=== PATIENT | female | born 1940 | race Caucasian/White ===

== ENCOUNTER 2018-11-11 16:20 | Observation (INO) ==
--- NOTE | 2018-11-11 16:31 | Emergency Department Note ---
Disposition Clinical Impression: Chest pain Disposition: Admitted As Inpatient Condition: Good Time of Disposition: 19:17 Chest Pain HPI - General Chief Complaint: ED Chest Pain Stated Complaint: chest pain Time Seen by Provider: 11/11/18 16:29 Source: patient Mode of arrival: ambulatory Limitations: no limitations Vital Signs Reviewed: Yes Nursing Notes Reviewed: Yes - History of Present Illness HPI Narrative: Patient has had chest pain for over a week. She is been moving but got worse today so she came to the emergency department for evaluation. In the center of her chest reading through to her scapulas. She denies any vomiting and complains of a little shortness of breath. Patient reports that she sold her house is been packing to move to [place] she thought this might be what was causing her pain at first but when it persisted she decided to come and have it checked Onset (ago): week(s) (1 week) Pain Location: substernal, left chest Severity: mild Quality: aching Pain Radiation: back Improves with: nothing Worsens with: nothing - Related Data Home Medications Medication Instructions Recorded Confirmed Gabapentin [Neurontin] 800 mg PO TID 07/12/17 11/11/18 Insulin Glargine,Hum.rec.anlog 10 - 15 units SQ HS 07/12/17 11/11/18 [Lantus Solostar] Valsartan [Diovan] 40 mg PO DAILY 07/12/17 11/11/18 traZODone [TraZODone] 50 mg PO HS 07/12/17 11/11/18 Allopurinol [Zyloprim] 300 mg PO DAILY 07/01/18 11/11/18 Previous Rx's Medication Instructions Recorded Cetirizine HCl [Zyrtec] 10 mg PO DAILY #90 tablet 03/02/18 Fluticasone Propionate Nasal 16 gm NS DAILY PRN #1 bottle 03/02/18 [Flonase] Ondansetron ODT [Zofran ODT] 4 mg SL Q6HR PRN #12 tab.rapdis 09/29/18 Allergies Allergy/AdvReac Type Severity Reaction Status Date / Time No Known Allergies Allergy Verified 08/22/18 10:57 All systems ED: reviewed and negative except as stated. Review of Systems: As Per HPI Constitutional: Denies: fever, chills, weakness, weight change Eyes: Denies: eye pain, eye discharge, vision change ENT ED: Denies: ear pain, throat pain, dental pain, hearing loss, epistaxis, congestion, dysphagia Cardiovascular: Reports: as per HPI, chest pain Respiratory: Reports: as per HPI, dyspnea Gastrointestinal: Denies: abdominal pain, nausea, vomiting, diarrhea, constipation, hematemesis, melena, hematochezia Genitourinary: Denies: dysuria, frequency, hematuria, discharge Musculoskeletal: Denies: back pain, neck pain, arthralgia, myalgia Integumentary: Denies: rash, abrasion, lesions Neurological: Denies: headache, weakness, numbness, paresthesias, confusion, abnormal gait, vertigo Psychiatric: Denies: anxiety, depression, suicidal thoughts, homicidal thoughts, auditory hallucinations, visual hallucinations Endocrine: Denies: fatigue Hematological/Lymphatic: Denies: easy bleeding, easy bruising Allergic/Immunologic: Denies: facial swelling, urticaria Chest Pain PMH - Past Medical History Medical history: Reports: arthritis, diabetes, fibromyalgia, hypertension Surgical history: Reports: appendectomy, hip replacement, orthopedic, other (Bilateral shoulder surgeries), pacemaker/AICD (July 2018, [place]) Psychiatric history: Reports: anxiety, depression - Social History Smoking Status: Never smoker Alcohol use: Reports: none Drug use: Reports: none Physical Exam - General Limitations: no limitations General appearance: alert, in no apparent distress - Head Head exam: atraumatic, normocephalic, normal inspection - Eye Eye exam: Present: normal appearance, PERRL, EOMI - ENT ENT exam: normal exam, normal oropharynx, mucous membranes moist - Neck Neck exam: Present: normal inspection, full ROM, trachea midline - Chest Chest inspection: Present: normal inspection, symmetric chest wall rise - Respiratory Respiratory exam: Present: normal lung sounds bilaterally - Cardiovascular Cardiovascular exam: Present: regular rate, normal rhythm, normal heart sounds - Abdominal Exam Abdominal exam: Present: soft, Non-Tender. Absent: tenderness, distention, guarding, rebound, rigidity - Extremities Exam Extremities exam: Present: normal inspection - Back Exam Back exam: Present: normal inspection - Neurological Exam Neurological exam: Present: alert, oriented X3 - Psychiatric Psychiatric exam: Present: normal affect, normal mood - Skin Skin exam: Present: warm, dry, intact Course Vital Signs Temperature 97.8 F 11/11/18 16:22 Pulse Rate 56 11/11/18 16:22 Respiratory Rate 18 11/11/18 16:22 Blood Pressure 152/77 11/11/18 16:22 O2 Sat by Pulse Oximetry 97 11/11/18 16:22 Temperature 97.8 F 11/11/18 16:22 Pulse Rate 55 11/11/18 19:29 Respiratory Rate 16 11/11/18 19:29 Blood Pressure 139/74 11/11/18 19:29 O2 Sat by Pulse Oximetry 96 11/11/18 19:29 Oxygen Delivery Oxygen Delivery Nasal Cannula Chest Pain - MDM Narrative Medical decision making narrative: I reviewed the patient's medication list Case discussed with Dr. Bass who is graciously accepted admission to the hospital - Lab Data Lab results reviewed: Yes I reviewed the patient's lab results. Result diagrams: 11/11/18 16:43 11/11/18 16:43 Lab Results 11/11/18 11/11/18 11/11/18 Range/Units 16:43 16:43 16:43 WBC 7.2 (4.3-11.1) K/mcL RBC 4.19 (3.82-4.97) M/mcL Hgb 13.6 (11.5-15.4) g/dL Hct 40.8 (35.3-44.9) % MCV 97.4 (83.0-100.0) fL MCH 32.5 (28.0-33.3) pg MCHC 33.3 (31.6-35.5) g/dL RDW 13.9 (11.5-14.5) % Plt Count 186 (140-400) K/mcL MPV 10.5 (9.4-12.4) fL Immature Gran % 0.3 (0-4) % Seg Neutrophils % 62.5 % Lymphocytes % 27.4 % Monocytes % 7.4 % Eosinophils % 1.8 % Basophils % 0.6 % Neutrophils # 4.5 (1.6-8.9) K/mcL Lymphocytes # 2.0 (0.6-4.6) K/mcL Monocytes # 0.5 (0.0-1.3) K/mcL Eosinophils # 0.1 (0.0-0.6) K/mcL Basophils # 0.0 (0.0-0.2) K/mcL PT 12.1 (9.4-12.1) Seconds INR 1.1 APTT 33.0 (26.0-36.0) Seconds Sodium 136 (136-145) mEq/L Potassium 4.5 (3.5-5.1) mEq/L Chloride 99 (98-107) mEq/L Carbon Dioxide 30 H (23-29) mEq/L BUN 16 (8-23) mg/dL Creatinine 0.97 (0.60-1.20) mg/dL Est GFR ( Amer) > 60 (> 60) Est GFR (Non-Af Amer) 56 L (> 60) BUN/Creatinine Ratio 16 (6-26) Glucose 108 H (70-105) mg/dL Calculated Osmolality 284 (280-300) Calcium 9.7 (8.6-10.3) mg/dL Total Bilirubin 0.4 (0.3-1.0) mg/dL AST 17 (13-39) Units/L ALT 12 (7-52) Units/L Alkaline Phosphatase 70 (34-104) Units/L Troponin I < 0.03 (< 0.04) ng/mL Serum Total Protein 7.2 (6.4-8.9) g/dL Albumin 4.1 (3.5-5.7) g/dL Globulin 3.1 (2.4-3.5) g/dL Albumin/Globulin Ratio 1.3 (1.1-2.2) Urine Color (Yellow) Urine Clarity (Clear) Urine pH (5.0-8.0) pH Units Ur Specific [place] (1.010-1.025) Urine Protein (Neg-Trace) mg/dL Urine Glucose (UA) (Normal) mg/dL Urine Ketones (Negative) mg/dL Urine Blood (Negative) Urine Nitrite (Negative) Urine Bilirubin (Negative) Urine Urobilinogen (Normal) mg/dL Ur Leukocyte Esterase (Negative) Ur Culture Indicated? (NO) 11/11/18 11/11/18 Range/Units 17:25 18:41 WBC (4.3-11.1) K/mcL RBC (3.82-4.97) M/mcL Hgb (11.5-15.4) g/dL Hct (35.3-44.9) % MCV (83.0-100.0) fL MCH (28.0-33.3) pg MCHC (31.6-35.5) g/dL RDW (11.5-14.5) % Plt Count (140-400) K/mcL MPV (9.4-12.4) fL Immature Gran % (0-4) % Seg Neutrophils % % Lymphocytes % % Monocytes % % Eosinophils % % Basophils % % Neutrophils # (1.6-8.9) K/mcL Lymphocytes # (0.6-4.6) K/mcL Monocytes # (0.0-1.3) K/mcL Eosinophils # (0.0-0.6) K/mcL Basophils # (0.0-0.2) K/mcL PT (9.4-12.1) Seconds INR APTT (26.0-36.0) Seconds Sodium (136-145) mEq/L Potassium (3.5-5.1) mEq/L Chloride (98-107) mEq/L Carbon Dioxide (23-29) mEq/L BUN (8-23) mg/dL Creatinine (0.60-1.20) mg/dL Est GFR ( Amer) (> 60) Est GFR (Non-Af Amer) (> 60) BUN/Creatinine Ratio (6-26) Glucose (70-105) mg/dL Calculated Osmolality (280-300) Calcium (8.6-10.3) mg/dL Total Bilirubin (0.3-1.0) mg/dL AST (13-39) Units/L ALT (7-52) Units/L Alkaline Phosphatase (34-104) Units/L Troponin I < 0.03 (< 0.04) ng/mL Serum Total Protein (6.4-8.9) g/dL Albumin (3.5-5.7) g/dL Globulin (2.4-3.5) g/dL Albumin/Globulin Ratio (1.1-2.2) Urine Color Yellow (Yellow) Urine Clarity Clear (Clear) Urine pH 7.5 (5.0-8.0) pH Units Ur Specific [place] 1.020 (1.010-1.025) Urine Protein Negative (Neg-Trace) mg/dL Urine Glucose (UA) Normal (Normal) mg/dL Urine Ketones Negative (Negative) mg/dL Urine Blood Negative (Negative) Urine Nitrite Negative (Negative) Urine Bilirubin Negative (Negative) Urine Urobilinogen Normal (Normal) mg/dL Ur Leukocyte Esterase Negative (Negative) Ur Culture Indicated? NO (NO) - Radiology Data Radiology results reviewed: Yes I reviewed the patient's radiology results. - EKG Data EKG attestation: Yes I reviewed and interpreted this EKG. EKG results narrative: EKG shows a dual atrial ventricular paced rhythm. Rate is 58 bpm
[2018-11-11] MEDS ORDERED: Aspirin 81 MG TAB.CHEW PO STA (16:32)
[2018-11-11] MEDS ORDERED: 0.9 % Sodium Chloride 1,000 ML IVC SCH (16:45)
[2018-11-11 16:47] LABS: Basophils % 0.6 %; Eosinophils # 0.1 K/mcL (0.0-0.6); Eosinophils % 1.8 %; Hematocrit 40.8 % (35.3-44.9); Hemoglobin 13.6 g/dL (11.5-15.4); Immature Granulocytes % 0.3 % (0-4); Lymphocytes % 27.4 %; Mean Corpuscular HGB Conc 33.3 g/dL (31.6-35.5); Mean Corpuscular Hemoglobin 32.5 pg (28.0-33.3); Mean Corpuscular Volume 97.4 fL (83.0-100.0); Mean Platelet Volume 10.5 fL (9.4-12.4); Monocytes # 0.5 K/mcL (0.0-1.3); Monocytes % 7.4 %; Neutrophils # 4.5 K/mcL (1.6-8.9); Platelet Count 186 K/mcL (140-400); Red Blood Count 4.19 M/mcL (3.82-4.97); Red Cell Distribution Width 13.9 % (11.5-14.5); Segmented Neutrophils % 62.5 %
[2018-11-11] MEDS: Nitroglycerin 0.4 MG TAB.SUBL SL PRN ×3 (16:49→17:00)
[2018-11-11 16:55] LABS: INR 1.1; Prothrombin Time 12.1 Seconds (9.4-12.1)
[2018-11-11 17:02] LABS: Alanine Aminotransferase 12 Units/L (7-52); Albumin 4.1 g/dL (3.5-5.7); Albumin/Globulin Ratio 1.3 (1.1-2.2); Alkaline Phosphatase 70 Units/L (34-104); Aspartate Amino Transferase 17 Units/L (13-39); BUN/Creatinine Ratio 16 (6-26); Bilirubin,Total 0.4 mg/dL (0.3-1.0); Blood Urea Nitrogen 16 mg/dL (8-23); Calcium 9.7 mg/dL (8.6-10.3); Carbon Dioxide 30 mEq/L (23-29); Chloride 99 mEq/L (98-107); Globulin 3.1 g/dL (2.4-3.5); Glucose 108 mg/dL (70-105); Osmolality,Calculated 284 (280-300); Potassium 4.5 mEq/L (3.5-5.1); Sodium 136 mEq/L (136-145); Total Protein 7.2 g/dL (6.4-8.9); eGFR For Non-African Americans 56 (> 60)
[2018-11-11 17:08] LABS: Troponin I < 0.03 ng/mL (< 0.04)
[2018-11-11 17:38] LABS: Bilirubin,Urine Negative (Negative); Blood,Urine Negative (Negative); Clarity,Urine Clear (Clear); Color,Urine Yellow (Yellow); Glucose,Urine (UA) Normal (Normal); Ketones,Urine Negative (Negative); Leukocyte Esterase,Urine Negative (Negative); Nitrite,Urine Negative (Negative); PH,Urine 7.5 pH Units (5.0-8.0); Protein,Urine Negative (Neg-Trace); Urobilinogen,Urine Normal (Normal)
[2018-11-11 19:30] VITALS: BP 139/74
--- NOTE | 2018-11-13 19:34 | Internal Med Progress Note ---
Date of Encounter: 11/13/18 Time of Encounter: 19:33 - Subjective Interval history: Patient was admitted through emergency room. She left AMA before I saw her. - Constitutional Vitals: Temp Pulse Resp BP Pulse Ox 97.8 F 55 16 139/74 96 11/11/18 16:22 11/11/18 19:29 11/11/18 19:29 11/11/18 19:29 11/11/18 19:29 Internal Medicine: Result - Labs CBC & Chem 7: 11/11/18 16:43 11/11/18 16:43 - ABG Interpretation ABG results: PT/INR, D-dimer PT 12.1 Seconds (9.4-12.1) 11/11/18 16:43 Consult Discharge Plan - Plan Instructions: Chest Pain (DC) Referrals: Thor Rodriguez DO [Primary Care Provider] - 1 week
--- NOTE | 2018-11-14 22:30 | Electrocardiograph Report ---
[place] [id number] Test Date: 2018-11-11 Pat Name: Tomasa Yang Department: EDP-14 Room: [facility] Gender: F Wafer Slicer: HERMILO: [id number] Requested By: Addison Call Order Number: [id number] Reading MD: Laci Hendrickson Measurements Intervals Silva Rate: 58 P: 164 WI: 123 QRS: 12 QRSD: 102 T: 20 QT: 443 QTc: 436 Interpretive Statements Atrial-ventricular dual-paced rhythm No further analysis attempted due to paced rhythm Electronically Signed On 11-14-2018 22:28:36 EST by Laci Hendrickson
== END 2018-11-11 20:57 | disposition left against medical advice (07) ==
LOC: INPPIK 16:20 → EMEROOPIK 16:20 → INPPIK 19:50
PROVIDERS: ADMIT Internal Medicine; ATTEND Internal Medicine